=== PATIENT | female | born 1995 | race Caucasian/White ===

== ENCOUNTER 2017-11-17 15:45 | Observation (INO) | payer SELFPAY ==
[~2017-11-17] VITALS: Ht 170.2 cm; Wt 65.8 kg
[2017-11-17] MEDS ORDERED: PREN-380 PO (16:02)
[2017-11-17 16:04] VITALS: BP 107/63
== END 2017-11-17 18:26 | disposition home or self-care (01) ==
LOC: MLD 15:45
PROVIDERS: ADMIT Obstetrics & Gynecology; ATTEND Obstetrics & Gynecology
DX: O26.892 Other specified pregnancy related conditions, second trimester (principal); R10.2 Pelvic and perineal pain; Z3A.25 25 weeks gestation of pregnancy
CPT/HCPCS: 76805; G0378; Q0092